=== PATIENT | female | born 1975 ===

== ENCOUNTER 2017-03-07 18:19 | Emergency (ER) | payer MEDICAID ==
[2017-03-07] MEDS ORDERED: Sodium Chloride 0.9% 500 ML IV ONE (19:03)
[2017-03-07] MEDS ORDERED: Sodium Chloride 0.9% 10 ML Syringe FLUSH PRN (19:04)
[2017-03-07] MEDS ORDERED: Metoprolol Tartrate 5 MG in Sodium Chloride 0.9% 50 ML IV ONE (19:04)
[2017-03-07] MEDS ORDERED: Metoprolol Tartrate 5 MG/5 ML SDV IVPUSH ONE ×3 (19:29→20:00)
--- NOTE | 2017-03-07 19:45 | EDM.PDOC ---
ED HPI GENERAL MEDICAL PROBLEM - General Chief Complaint: Cardiovascular Problem Stated Complaint: HIGH BP/FAST HEART RATE Time Seen by Provider: 03/07/17 18:55 Source of Information: Reports: Patient, Family (spouse), RN Notes Reviewed - History of Present Illness INITIAL COMMENTS - FREE TEXT/NARRATIVE: 41 year old female comes in with tachycardia, palpitations. She had onset of these sx this past morning about 11 hours ago. She has had this in the past occasionally first starting about 3 yrs ago. Has not been ill recently. Does not feel overly stressed or anxious. No chest pain or difficulty breathing. She has not been coughing, does not feel short of breath. No abdominal pain nausea or vomiting. She has been eating and drinking satisfactorily. She does not smoke. SHe does not drink caffeine. - Related Data Allergies Allergy/AdvReac Type Severity Reaction Status Date / Time cefuroxime axetil Allergy Rash Verified 03/07/17 18:37 [From Ceftin] cephalexin monohydrate Allergy Rash Verified 03/07/17 18:37 [From Keflex] Home Meds: Home Meds LORazepam [Ativan] 0.5 mg PO Q4H #10 tablet 04/03/15 [Rx] Metoprolol Tartrate 50 mg PO BID #60 tablet 03/07/17 [Rx] Potassium Chloride 10 meq PO DAILY #10 tablet.er 03/07/17 [Rx] Past Medical History Other Respiratory History: as child [employer] History: Reports: Dysfunctional Uterine Bleeding, Other OB/BYN History: x2 Psychiatric History: Reports: Anxiety - Past Surgical History Other Female Surgeries/Procedures: x2 Social & Family History - Tobacco Use Smoking Status *Q: Former Smoker Years of Tobacco use: 16 Used Tobacco, but Quit: Yes Month Tobacco Last Used: 3 years ago Second Hand Smoke Exposure: No - Caffeine Use Caffeine Use: Reports: None - Recreational Drug Use Recreational Drug Use: No ED ROS GENERAL - Review of Systems Review Of Systems: See Below Constitutional: Denies: Fever, Chills, Diaphoresis HEENT: Reports: No Symptoms. Denies: Throat Pain Respiratory: Denies: Shortness of Breath Cardiovascular: Denies: Chest Pain Endocrine: Denies: Fatigue GI/Abdominal: Denies: Abdominal Pain, Nausea, Vomiting Musculoskeletal: Denies: Shoulder Pain, Arm Pain, Back Pain, Joint Pain Skin: Reports: No Symptoms Neurological: Reports: Dizziness (mild) ED EXAM, GENERAL - Physical Exam Exam: See Below General Appearance: Alert, No Apparent Distress Eye Exam: Bilateral Eye: PERRL Throat/Mouth: Normal Inspection, Normal Oropharynx. No: Other Neck: Supple, Full Range of Motion. No: Lymphadenopathy (L), Lymphadenopathy (R ) Respiratory/Chest: No Respiratory Distress, Lungs Clear, Normal Breath Sounds Cardiovascular: Tachycardia GI/Abdominal: Soft, Non-Tender. No: Guarding Back Exam: No: CVA Tenderness (L), CVA Tenderness (R) Extremities: Normal Inspection, Normal Range of Motion. No: Pedal Edema, Leg Pain, Increased Warmth, Redness Neurological: Alert, Oriented, No Motor/Sensory Deficits Skin Exam: Warm, Dry, Normal Color EKG INTERPRETATION EKG Date: 03/07/17 Rhythm: Other (sinus tach, taken after 5 mg lopressor IV) [place]: Normal P-Wave: Present QRS: Normal ST-T: Normal Course - Vital Signs Last Recorded V/S: Last Vital Signs Temp 97.5 F 03/07/17 18:29 Pulse 124 H 03/07/17 21:42 Resp 16 03/07/17 18:29 BP 135/94 H 03/07/17 21:42 Pulse Ox 98 03/07/17 18:29 - Orders/Labs/Meds Orders: Active Orders 24 hr Category Date Time Status EKG 12 Lead [EKG Documentation Completion] [RC] STAT Care 03/07/17 19:03 Active Peripheral IV Care [RC] . DIRECTED Care 03/07/17 19:04 Active Chest 1V Frontal [CR] Stat Exams 03/07/17 19:03 Taken Sodium Chloride 0.9% [Saline Flush] Med 03/07/17 19:04 Active 10 ml FLUSH ASDIRECTED PRN Peripheral IV Insertion Adult [OM.PC] Stat Oth 03/07/17 19:03 Ordered Medication Orders Sodium Chloride (Saline Flush) 10 ml FLUSH ASDIRECTED PRN PRN Reason: Keep Vein Open Last Admin: 03/07/17 19:30 Dose: 10 ml Labs: Laboratory Tests 03/07/17 03/07/17 Range/Units 19:26 19:26 WBC 10.85 H (3.98-10.04) K/mm3 RBC 4.63 (3.98-5.22) M/mm3 Hgb 12.6 (11.2-15.7) gm/L Hct 38.1 (34.1-44.9) % MCV 82.3 (79.4-94.8) fl MCH 27.2 (25.6-32.2) pg MCHC 33.1 (32.2-35.5) g/dl RDW Std Deviation 44.2 (36.4-46.3) fL Plt Count 425 H (182-369) K/mm3 MPV 9.3 L (9.4-12.3) fl Neut % (Auto) 56.1 (34.0-71.1) % Lymph % (Auto) 34.4 (19.3-51.7) % [place] % (Auto) 5.0 (4.7-12.5) % Eos % (Auto) 3.9 (0.7-5.8) Baso % (Auto) 0.4 (0.1-1.2) % Neut # (Auto) 6.10 (1.56-6.13) K/mm3 Lymph # (Auto) 3.73 (1.18-3.74) K/mm3 [place] # (Auto) 0.54 H (0.24-0.36) K/mm3 Eos # (Auto) 0.42 H (0.04-0.36) K/mm3 Baso # (Auto) 0.04 (0.01-0.08) K/mm3 Sodium 142 (136-145) mEq/L Potassium 3.2 L (3.5-5.1) mEq/L Chloride 104 (98-107) mEq/L Carbon Dioxide 30 (21-32) mEq/L Anion Gap 11.2 (5-15) BUN 10 (7-18) mg/dL Creatinine 0.9 (0.55-1.02) mg/dL Est Cr Clr Drug Dosing 58.49 mL/min Estimated GFR (MDRD) > 60 (>60) mL/min BUN/Creatinine Ratio 11.1 L (14-18) Glucose 123 H (74-106) mg/dL Calcium 9.3 (8.5-10.1) mg/dL Total Bilirubin 0.6 (0.2-1.0) mg/dL AST 21 (15-37) U/L ALT 26 (14-59) U/L Alkaline Phosphatase 88 (46-116) U/L Total Protein 7.6 (6.4-8.2) g/dl Albumin 3.8 (3.4-5.0) g/dl Globulin 3.8 gm/dL Albumin/Globulin Ratio 1.0 (1-2) TSH 3rd Generation 1.546 (0.358-3.74) uIU/mL Meds: Medications Generic Name Dose Route Start Last Admin Trade Name Freq PRN Reason Stop Dose Admin Sodium Chloride 10 ml 03/07/17 19:04 03/07/17 19:30 Saline Flush FLUSH 10 ml ASDIRECTED PRN Administration Keep Vein Open Discontinued Medications Generic Name Dose Route Start Last Admin Trade Name Freq PRN Reason Stop Dose Admin Metoprolol Tartrate 5 mg/ 55 mls @ 100 mls/hr 03/07/17 19:04 Sodium Chloride IV 03/07/17 19:36 ONETIME ONE Sodium Chloride 500 mls @ 999 mls/hr 03/07/17 19:03 03/07/17 19:25 Normal Saline IV 03/07/17 19:33 999 mls/hr .BOLUS ONE Administration Metoprolol Tartrate 5 mg 03/07/17 19:29 03/07/17 19:31 Lopressor IVPUSH 03/07/17 19:30 5 mg ONETIME ONE Administration Metoprolol Tartrate 5 mg 03/07/17 19:35 03/07/17 19:46 Lopressor IVPUSH 03/07/17 19:36 5 mg ONETIME ONE Administration Metoprolol Tartrate 5 mg 03/07/17 20:00 03/07/17 20:17 Lopressor IVPUSH 03/07/17 20:01 5 mg ONETIME ONE Administration Metoprolol Tartrate 50 mg 03/07/17 20:42 03/07/17 20:50 Lopressor PO 03/07/17 20:43 50 mg ONETIME ONE Administration Metoprolol Tartrate 50 mg 03/07/17 21:38 03/07/17 21:42 Lopressor PO 03/07/17 21:39 50 mg ONETIME ONE Administration - Re-Assessments/Exams Free Text/Narrative Re-Assessment/Exam: 03/07/17 20:00 have given lopressor 5 mg IV times 2, rate down to about 120, continued sinus tach, no ectopy. She is not short of breath. O2 sats are running 98-99%. Will give a further 5 mg lopressor IV, than plan to follow up with oral. TSH normal , other labs relatively nornmal as well. 03/07/17 21:59. She did come down into the 110 range and then back up to about 120s did give one further dose of 50 mg metoprolol by mouth. Departure - Departure Time of Disposition: 20:48 Disposition: Home, Self-Care 01 Condition: Fair Clinical Impression: Sinus tachycardia Prescriptions: Metoprolol Tartrate 50 mg PO BID #60 tablet Potassium Chloride 10 meq PO DAILY #10 tablet.er Instructions: Sinus Tachycardia Referrals: PCP,None [Primary Care Provider] - Forms: ED Department Discharge Additional Instructions: metropolol 50 mg twice daily, drink plenty of water to maintain hydration, eat regular meals and snacks, potassium supplement once daily for the next 10 days, follow-up with Dr. Malcolm, [facility]. Call tomorrow morning for [phone] for appointment. See him as soon as possible in the next 1- 3 days. Get a blood pressure cuff and keep a log of your blood pressure and heart rate check in 2-3 times daily. Bring that information with you to the clinic for Dr. Malcolm to review An order for echocardiogram, ultrasound of your heart has been written. Radiology will call you in the morning to set up a time for that. return to ED if symptoms worsening in any way - My Orders Last 24 Hours: My Active Orders 03/07/17 19:03 EKG 12 Lead [EKG Documentation Completion] [RC] STAT Chest 1V Frontal [CR] Stat Peripheral IV Insertion Adult [OM.PC] Stat 03/07/17 19:04 Peripheral IV Care [RC] . DIRECTED Sodium Chloride 0.9% [Saline Flush] 10 ml FLUSH ASDIRECTED PRN - Assessment/Plan Last 24 Hours: My Active Orders 03/07/17 19:03 EKG 12 Lead [EKG Documentation Completion] [RC] STAT Chest 1V Frontal [CR] Stat Peripheral IV Insertion Adult [OM.PC] Stat 03/07/17 19:04 Peripheral IV Care [RC] . DIRECTED Sodium Chloride 0.9% [Saline Flush] 10 ml FLUSH ASDIRECTED PRN
[2017-03-07] MEDS ORDERED: Metoprolol Tartrate 50 MG Tab PO ONE ×2 (20:42→21:38)
[2017-03-07 21:43] VITALS: BP 135/94
--- NOTE | 2017-03-08 07:01 | CR ---
Chest: Portable view of the chest was obtained. Heart size appears slightly enlarged for portable technique. Lungs are clear. Bony structures are grossly intact. Impression: 1. Heart slightly enlarged, etiology not certain based on this study. 2. Nothing acute is otherwise seen on portable chest x-ray. Diagnostic code #3
== END 2017-03-07 22:03 | disposition home or self-care (01) ==
LOC: JD.ED 18:19
DX: R00.0 Tachycardia, unspecified (principal); F41.9 Anxiety disorder, unspecified; Z87.891 Personal history of nicotine dependence; Z98.890 Other specified postprocedural states; Z79.899 Other long term (current) drug therapy; Z88.1 Allergy status to other antibiotic agents
CPT/HCPCS: 36415; 71010; 80053; 84443; 85025; 93005; 96361; 96374; 96376; 99285; A9270; J7040; J7050; 99284; J3490